=== PATIENT | female | born 1970 | race Caucasian/White ===

== ENCOUNTER 2019-01-31 18:21 | Emergency (ER) | payer OTHER ==
[2019-01-31 18:45] VITALS: BP 138/82; PULSE 76; TEMP 98.2; BMI 32.1
--- NOTE | 2019-01-31 19:21 | PDOC ---
History of Present Illness - General Chief Complaint: Injury Stated Complaint: INJURY Time Seen by Provider: 01/31/19 18:44 - History of Present Illness Initial Comments: 01/31/19 19:20 48-year-old female without comorbidities presents for left ankle sprain after describing an inversion injury while coming down the steps 2 days ago Past History - Past Medical History Allergies/Adverse Reactions: Allergies Allergy/AdvReac Type Severity Reaction Status Date / Time No Known Allergies Allergy Verified 01/31/19 18:45 COPD: No - Psycho Social/Smoking Cessation Hx Smoking History: Never smoked Information on smoking cessation initiated: No Hx Alcohol Use: No Drug/Substance Use Hx: No Review of Systems - Review of Systems Musculoskeletal: Yes: Joint Pain *Physical Exam - Vital Signs Last Vital Signs Temp Pulse Resp BP Pulse Ox 98.2 F 76 18 138/82 100 01/31/19 18:43 01/31/19 18:43 01/31/19 18:43 01/31/19 18:43 01/31/19 18:43 - Physical Exam 01/31/19 19:20 Ankle skin color and temperature normal range of motion is slightly limited. There is no tenderness about the proximal fibula or along its distal course. No tenderness about the medial lateral malleolus base of the fifth metatarsal or navicular. Mild tenderness over the ATFL without instability no gross sensorimotor deficits neurovascular intact. ED Treatment Course - RADIOLOGY Radiology Studies Ordered: Category Date Time Status ANKLE & FOOT-LEFT* [RAD] Stat Radiology 01/31/19 18:53 Taken Medical Decision Making - Medical Decision Making 01/31/19 19:20 No evidence of fracture trauma or destructive process on radiograph. Left ankle sprain. Follow-up with orthopedics weight-bear as tolerated with crutches and Aircast Discharge - Discharge Information Problems reviewed: Yes Clinical Impression/Diagnosis: Ankle sprain Condition: Stable Disposition: HOME - Admission No - Follow up/Referral Referrals: Alton Silva DO [Staff Physician] - - Patient Discharge Instructions Additional Instructions: You may weight-bear as tolerated with use of crutches in the Aircast Tylenol as directed for pain. Return to the emergency room for worsening symptoms. And without fail please follow-up with orthopedic surgery in 1 to 2 days for further evaluation and treatment options. - Post Discharge Activity
[2019-01-31] MEDS ORDERED: ACETAMINOPHEN 500 MG TABLET (FP) PO ONE (19:33)
[2019-01-31] MEDS ORDERED: ACETAMINOPHEN 500 MG TABLET (FP) ONE (19:33)
== END 2019-01-31 20:10 | disposition home or self-care (01) ==
LOC: JERFT 18:21
PROC: 2W3RX1Z Immobilization of Left Lower Leg using Splint (ICD-10-PCS; principal; 2019-01-31)
DX: S93.492A Sprain of other ligament of left ankle, initial encounter (principal); W10.8XXA Fall (on) (from) other stairs and steps, initial encounter; Y93.89 Activity, other specified; Y92.414 Local residential or business street as the place of occurrence of the external cause; Y99.8 Other external cause status
CPT/HCPCS: 73610-TC-LT-FY; 73630-TC-LT; 99283-25